=== PATIENT | male | born 1985 | race Caucasian/White ===

== ENCOUNTER 2021-11-01 14:06 | Inpatient (IN) | payer OTHER ==
[2021-11-01] MEDS ORDERED: NALOXONE HCL 0.4 MG/ML VIAL IM PRN (18:19)
[2021-11-01] MEDS ORDERED: MAG HYDROX/AL HYDROX/SIMETH 30 ML UNIT-DOSE CUP PO PRN (18:19)
[2021-11-01] MEDS ORDERED: ACETAMINOPHEN 325 MG TABLET (FP) PO PRN ×2 (18:19)
[2021-11-01] MEDS ORDERED: MAGNESIUM CITRATE 300 ML BOTTLE PO PRN (18:19)
[2021-11-01] MEDS ORDERED: IBUPROFEN 400 MG TABLET (FP) PO PRN (18:19)
[2021-11-01] MEDS ORDERED: NALOXONE (NARCAN) HCL 4 MG/0.1 ML SPRAY NS PRN (18:19)
[2021-11-01] MEDS ORDERED: MENTHOL/PHENOL 1 EACH UD MM PRN (18:19)
[2021-11-01] MEDS ORDERED: ONDANSETRON *ODT* 4 MG TABLET SL PRN (18:19)
[2021-11-01] MEDS ORDERED: BISMUTH SUBSALICYLATE 524 MG/30 ML PO PRN (18:19)
[2021-11-01] MEDS ORDERED: MAGNESIUM HYDROX 2400MG/30ML ORAL SUSPENSION 30 ML CUP PO PRN (18:19)
[2021-11-01 19:28] VITALS: BMI 26.1
[2021-11-01] MEDS: hydrOXYzine PAMOATE 25 MG CAPSULE (FP) PO SCH (22:52)
[2021-11-01] MEDS: THIAMINE HCL 100 MG TABLET (FP) PO SCH (22:52)
[2021-11-01] MEDS: MELATONIN 5 MG TABLETS PO SCH (22:52)
[2021-11-02] MEDS: hydrOXYzine PAMOATE 25 MG CAPSULE (FP) PO SCH ×2 (06:54→10:51)
[2021-11-02] MEDS: PRENATAL VITAMINS W/ FOLIC ACID TABLET (FP) PO SCH (10:51)
[2021-11-02] MEDS: methaDONE HCL 40 MG DISPERSABLE TABLET PO SCH (12:05)
[2021-11-02] MEDS: METHOCARBAMOL 500 MG TABLET PO PRN ×2 (12:10→18:43)
[2021-11-02] MEDS: diazePAM 5 MG TABLET PO PRN (12:21)
[2021-11-02 13:14] LABS: MCH 29.5 pg (25.7-33.7); MCHC 33.4 g/dl (32.0-35.9); MEAN CELL VOLUME 88.5 fl (80-96); MEAN PLT VOLUME 9.2 fl (7.5-11.1); PLATELET COUNT 180 10^3/uL (134-434); RBC 4.07 M/mm3 (4.00-5.60); WHITE BLOOD COUNT 4.8 K/mm3 (4.0-10.0)
[2021-11-02 13:20] LABS: CALCIUM 8.5 mg/dL (8.5-10.1)
[2021-11-02 13:21] LABS: ALBUMIN 2.9 g/dl (3.4-5.0)
[2021-11-02 13:24] LABS: CREATININE 0.8 mg/dL (0.55-1.3)
[2021-11-02 13:25] LABS: BILIRUBIN,TOTAL 0.6 mg/dL (0.2-1)
[2021-11-02 13:26] LABS: TOT PROT 6.1 g/dl (6.4-8.2)
[2021-11-02] MEDS: GABAPENTIN 300 MG CAPSULE PO SCH ×2 (14:08→22:43)
[2021-11-02] MEDS: diazePAM 5 MG TABLET PO SCH ×2 (17:43→22:43)
[2021-11-02] MEDS: MELATONIN 5 MG TABLETS PO SCH (22:43)
[2021-11-02] MEDS: THIAMINE HCL 100 MG TABLET (FP) PO SCH (22:43)
[2021-11-03] MEDS: diazePAM 5 MG TABLET PO SCH ×4 (06:19→22:07)
[2021-11-03] MEDS: methaDONE HCL 40 MG DISPERSABLE TABLET PO SCH (06:20)
[2021-11-03] MEDS: PRENATAL VITAMINS W/ FOLIC ACID TABLET (FP) PO SCH (10:12)
[2021-11-03] MEDS: GABAPENTIN 300 MG CAPSULE PO SCH ×2 (10:12→22:06)
[2021-11-03] MEDS: diazePAM 5 MG TABLET PO PRN ×2 (10:12→19:25)
[2021-11-03] MEDS: NICOTINE POLACRILEX 2 MG GUM BUC PRN ×3 (12:02→22:08)
[2021-11-03] MEDS: THIAMINE HCL 100 MG TABLET (FP) PO SCH (22:06)
[2021-11-03] MEDS: MELATONIN 5 MG TABLETS PO SCH (22:06)
[2021-11-04] MEDS: diazePAM 5 MG TABLET PO SCH ×3 (06:07→22:07)
[2021-11-04] MEDS: methaDONE HCL 40 MG DISPERSABLE TABLET PO SCH (06:08)
[2021-11-04] MEDS: NICOTINE POLACRILEX 2 MG GUM BUC PRN ×4 (06:11→22:10)
[2021-11-04] MEDS: GABAPENTIN 300 MG CAPSULE PO SCH ×2 (10:11→22:06)
[2021-11-04] MEDS: diazePAM 5 MG TABLET PO PRN ×2 (10:11→17:58)
[2021-11-04] MEDS: PRENATAL VITAMINS W/ FOLIC ACID TABLET (FP) PO SCH (10:11)
[2021-11-04] MEDS ORDERED: IBUPROFEN 600 MG TABLET (FP) PO PRN (10:55)
[2021-11-04] MEDS: THIAMINE HCL 100 MG TABLET (FP) PO SCH (22:06)
[2021-11-04] MEDS: MELATONIN 5 MG TABLETS PO SCH (22:06)
[2021-11-05] MEDS: methaDONE HCL 40 MG DISPERSABLE TABLET PO SCH (06:25)
[2021-11-05] MEDS: diazePAM 5 MG TABLET PO SCH ×2 (06:26→18:50)
[2021-11-05] MEDS: NICOTINE POLACRILEX 2 MG GUM BUC PRN (06:29)
[2021-11-05] MEDS: PRENATAL VITAMINS W/ FOLIC ACID TABLET (FP) PO SCH (10:07)
[2021-11-05] MEDS: GABAPENTIN 300 MG CAPSULE PO SCH ×2 (10:07→22:18)
[2021-11-05] MEDS: diazePAM 5 MG TABLET PO PRN (10:08)
[2021-11-05] MEDS: NICOTINE 10 MG CARTRIDGE (INHALER) IH PRN ×2 (10:10→18:56)
[2021-11-05 13:11] LABS: URINE APPEARANCE CLEAR; URINE BILIRUBIN NEGATIVE (NEGATIVE); URINE COLOR YELLOW; URINE GLUCOSE (UA) NEGATIVE (NEGATIVE); URINE KETONE NEGATIVE (NEGATIVE); URINE LEUK ESTERASE NEGATIVE (NEGATIVE); URINE NITRITE NEGATIVE (NEGATIVE); URINE PROTEIN NEGATIVE (NEGATIVE)
[2021-11-05 16:14] LABS: HIV INTERPRETATION NEGATIVE (NEGATIVE)
[2021-11-05] MEDS: THIAMINE HCL 100 MG TABLET (FP) PO SCH (22:18)
[2021-11-05] MEDS: MELATONIN 5 MG TABLETS PO SCH (22:18)
[2021-11-05] MEDS: METHOCARBAMOL 500 MG TABLET PO PRN (22:19)
[2021-11-06] MEDS ORDERED: diazePAM 5 MG TABLET PO ONE (06:00)
[2021-11-06] MEDS: methaDONE HCL 40 MG DISPERSABLE TABLET PO SCH (06:28)
[2021-11-06 08:29] VITALS: TEMP 96.9
[2021-11-06 09:17] VITALS: BP 96/53; PULSE 74
[2021-11-06] MEDS: GABAPENTIN 300 MG CAPSULE PO SCH (09:28)
[2021-11-06] MEDS: PRENATAL VITAMINS W/ FOLIC ACID TABLET (FP) PO SCH (09:29)
== END 2021-11-06 09:37 | disposition home or self-care (01) | DRG 773 ==
LOC: YASAS 14:06 → Y3N 17:45 → UNDOADMIN 17:45
PROVIDERS: ADMIT Allergy & Immunology; ATTEND Allergy & Immunology
PROC: HZ2ZZZZ Detoxification Services for Substance Abuse Treatment (ICD-10-PCS; principal; 2021-11-01)
DX: F13.230 Sedative, hypnotic or anxiolytic dependence with withdrawal, uncomplicated (principal); F11.20 Opioid dependence, uncomplicated; F14.20 Cocaine dependence, uncomplicated; F17.210 Nicotine dependence, cigarettes, uncomplicated; F41.9 Anxiety disorder, unspecified; M79.7 Fibromyalgia; R74.01 Elevation of levels of liver transaminase levels; Z88.8 Allergy status to other drugs, medicaments and biological substances; Z86.59 Personal history of other mental and behavioral disorders
CPT/HCPCS: 36415; 80053; 81003; 84450; 85027; 86695; 86696; 86780; 86803; 87389; 93005; 93010; C9803; U0003; U0005